=== PATIENT | male | born 1960 | race Caucasian/White ===

== ENCOUNTER 2022-03-08 01:58 | Day surgery (SDC) | payer OTHER, SELFPAY ==
[2022-02-27 14:22] VITALS: BMI 29.6
[2022-02-27 14:45] VITALS: BMI 29.6
[2022-03-08 10:50] VITALS: BMI 29.7
--- NOTE | 2022-03-08 11:01 | WPDGICN ---
Assessment and Plan Assessment and plan (1) Positive colorectal cancer screening using Cologuard test: Code(s): R19.5 - Other fecal abnormalities Status: Acute Assessment and Plan: Patient found to have a positive Cologuard test. Plan is for screening colonoscopy at this time because of this. GI Consult Note Consult date/time: 03/08/22 11:01 HPI: Doug Schulz is a 61 year old male Presents for screening colonoscopy. Patient was recently found to have a positive Cologuard test. He reports his current weight appetite bowel movements are normal. Denies abdominal pain. He denies any bleeding. He reports several episodes of diarrhea since the beginning of the year that have lasted for several weeks. He has had no diarrhea over the last month. He denies any blood loss. Family history is noncontributory. Review of Systems Review of Systems: All systems reviewed & are unremarkable except as noted in HPI and below PMFSH Social History Social History Smoking status: Never smoker Substance use type: does not use Living arrangements: alone Spiritual care concerns: No Meds Home Medications and Allergies Home Medications Medication Instructions Recorded Confirmed Type clonazepam 0.5 mg PO HS 02/27/22 03/08/22 History divalproex 1,000 mg PO HS 02/27/22 03/08/22 History lisinopril 5 mg PO DAILY 02/27/22 03/08/22 History metformin 1,000 mg PO BID 02/27/22 03/08/22 History olanzapine 20 mg PO HS 02/27/22 03/08/22 History pravastatin 40 mg PO DAILY 02/27/22 03/08/22 History tamsulosin 0.4 mg PO DAILY 02/27/22 03/08/22 History paroxetine HCl [Paxil] 40 mg PO DAILY 02/28/22 03/08/22 History Allergies Allergy/AdvReac Type Severity Reaction Status Date / Time No Known Allergies Allergy Verified 03/08/22 10:49 Exam Narrative: Physical exam reveals patient to be alert. Vital signs stable. HEENT exam unremarkable. Patient is anicteric. Lungs are clear to auscultation and percussion. Heart is without murmur or extra sounds. Abdomen bowel sounds present soft nontender with no organomegaly. Digital external rectal exam is normal. Extremities reveal an active tremor the patient states is being worked up by primary care service
[2022-03-08] MEDS: LACTATED RINGERS 1,000 ML 150 ML IV CONT (11:08)
[2022-03-08 11:09] VITALS: BP 137/77; PULSE 93; RESP 20; TEMP 36.1; O2SAT 98
[2022-03-08 11:09] LABS: Glucose Point of Care 146 mg/dl (65-105)
--- NOTE | 2022-03-08 11:18 | P.PNAN_ITS ---
Anes - Initial Pre Proc Eval Procedure: Operation Date: 03/08/22 11:30 Proposed Procedures p Colonoscopy - Bandar Lomeli MD Date/Time: 03/08/22 11:18 Surgeon: Bandar Lomeli MD Pre Op Diagnosis: positive cologuard Patient Data Age: 61 Gender: M Height: 1.75 m Weight: 91.5 kg Last Vital Signs Temp 36.1 C L 03/08/22 11:09 Pulse 93 03/08/22 11:09 Resp 20 03/08/22 11:09 BP 137/77 03/08/22 11:09 Pulse Ox 98 03/08/22 11:09 Allergies Allergy/AdvReac Type Severity Reaction Status Date / Time No Known Allergies Allergy Verified 03/08/22 10:49 Home Medications Medication Instructions Recorded Confirmed Type clonazepam 0.5 mg PO HS 02/27/22 03/08/22 History divalproex 1,000 mg PO HS 02/27/22 03/08/22 History lisinopril 5 mg PO DAILY 02/27/22 03/08/22 History metformin 1,000 mg PO BID 02/27/22 03/08/22 History olanzapine 20 mg PO HS 02/27/22 03/08/22 History pravastatin 40 mg PO DAILY 02/27/22 03/08/22 History tamsulosin 0.4 mg PO DAILY 02/27/22 03/08/22 History paroxetine HCl [Paxil] 40 mg PO DAILY 02/28/22 03/08/22 History Laboratory Tests 03/08/22 11:00 POC Capillary Glucose 146 mg/dl H mg/dl (65-105) Patient hx anesthesia problems: none Family hx anesthesia problems: none Results Review: All pre-operative results and documents have been reviewed as part of the pre-operative evaluation. [facility] Past Medical History Medical History Action tremor Diabetes Hyperlipidemia Hypertension Social History Social History Smoking status: Never smoker Substance use type: does not use Living arrangements: alone Spiritual care concerns: No Anes - Eval Final PreProcedure Day of Procedure 03/08/22 11:18 Patient weight: overweight Heart: regular rate and rhythm Lungs: clear to auscultation Airway: Mallampati scale class II Neurological: alert and oriented Last oral intake: >/= 8 hours ASA classification: III Emergent: no Anesthetic plan: proceed Anesthesia type and monitoring: general GIVS and standard monitoring Results Review: All pre-operative results and documents have been reviewed as part of the pre-operative evaluation. Informed Consent: The patient's anesthetic plan and its attendant risks and benefits were discussed with the patient/family/POA. Questions were solicited and answers provided to the satisfaction of the patient/family/POA.
[2022-03-08 12:10] VITALS: BP 112/64; PULSE 71; RESP 20; O2SAT 100
[2022-03-08 12:20] VITALS: BP 123/73; PULSE 74; RESP 23; O2SAT 100
[2022-03-08 12:30] VITALS: BP 128/76; PULSE 72; RESP 18; O2SAT 100
== END 2022-03-08 12:38 | disposition home or self-care (01) ==
PROVIDERS: PCP Nurse Practitioner Adult Health; Visit Provider Internal Medicine Gastroenterology
PROC: 0DJD8ZZ Inspection of Lower Intestinal Tract, Via Natural or Artificial Opening Endoscopic (ICD-10-PCS; CPT 45378; principal; 2022-03-08 11:30)
DX: R19.5 Other fecal abnormalities (principal); Z79.899 Other long term (current) drug therapy; K64.8 Other hemorrhoids; K57.30 Diverticulosis of large intestine without perforation or abscess without bleeding
CPT/HCPCS: 45378; 82948; J2001; J2704; J7120